=== PATIENT | female | born 1945 | race Two or more races ===

== ENCOUNTER 2024-05-17 03:36 | Emergency (ER) | payer MEDICARE, OTHER ==
[~2024-05-17] VITALS: Ht 167.6 cm; Wt 81.6 kg
[2024-05-17 05:00] VITALS: TEMP 98.1; O2SAT 98
[2024-05-17] MEDS ORDERED: LISINOPRIL (10MG) 10 MG TABLET ONE (05:13)
[2024-05-17 05:18] VITALS: BP 171/74
[2024-05-17] MEDS: LISINOPRIL (10MG) 10 MG TABLET PO SCH (05:18)
== END 2024-05-17 06:23 ==
LOC: ER 03:39
DX: M25.571 Pain in right ankle and joints of right foot (principal); I10 Essential (primary) hypertension; E11.9 Type 2 diabetes mellitus without complications; E78.5 Hyperlipidemia, unspecified

== ENCOUNTER 2024-09-30 18:26 | Emergency (ER) | payer MEDICARE, OTHER ==
[~2024-09-30] VITALS: Ht 152.4 cm; Wt 66.2 kg
[2024-09-30 19:00] LABS: BASOPHILS % (AUTO) 0.3 % (0.0-2.0); EOSINOPHILS % (AUTO) 0.2 % (0.0-6.0); HEMATOCRIT 25 % (33-45); HEMOGLOBIN 8.1 g/dL (11.5-14.8); LYMPHOCYTES # (AUTO) 1.5 K/uL (0.8-4.8); LYMPHOCYTES % (AUTO) 10.2 % (20.0-44.0); MEAN CORPUSCULAR HEMOGLOBIN 29 PG (26.0-33.0); MEAN CORPUSCULAR HGB CONC 33 g/dl (31.0-36.0); MEAN CORPUSCULAR VOLUME 87 fL (82-100); MONOCYTES # (AUTO) 0.9 K/uL (0.1-1.30); NEUTROPHILS % (AUTO) 83.3 % (43.0-81.0); PLATELET COUNT (AUTO) 421 K/uL (150-450); RED BLOOD CELL COUNT(AUTO) 2.84 MIL/uL (4.0-5.2); RED CELL DISTRIBUTION WIDTH 13.3 % (11.5-15.0); WHITE BLOOD COUNT (AUTO) 14.4 K/uL (4.3-11.0)
[2024-09-30 19:11] LABS: CALCIUM, SERUM 8.8 mg/dL (8.5-10.1); CARBON DIOXIDE 27 mmol/L (21-32); CHLORIDE 102 mmol/L (98-107); CREATININE 0.7 mg/dL (0.6-1.3); GLUCOSE 157 mg/dL (74-106); POTASSIUM 4.4 mmol/L (3.5-5.1); SODIUM SERUM 135 mmol/L (136-145); UREA NITROGEN, BLOOD 35 mg/dL (7-18)
[2024-09-30 19:16] LABS: ALANINE AMINOTRANSFERASE < 6 U/L (12-78); ALBUMIN 1.7 g/dL (3.4-5.0); ALKALINE PHOSPHATASE 83 U/L (46-116); ASPARTATE AMINOTRANSFERASE 9 U/L (15-37); BILIRUBIN,DIRECT 0.1 mg/dL (0.0-0.2); BILIRUBIN,TOTAL 0.3 mg/dL (0.2-1.0); TOTAL PROTEIN, SERUM 6.7 g/dL (6.4-8.2)
[2024-09-30 19:19] LABS: LACTIC ACID 1.1 mmol/L (0.4-2.0)
[2024-09-30] MEDS: IV NS 0.9% 1,000 ML BAG IV ONE (19:26)
[2024-09-30 19:40] LABS: INR 1.03 (0.91-1.10); PARTIAL THROMBOPLASTIN TIME 33.9 SEC (24.3-34.3); PROTHROMBIN TIME 10.9 SECS (9.2-11.1)
[2024-09-30] MEDS ORDERED: LORAZEPAM INJ 2 MG/ML VIAL ONE (20:00)
[2024-09-30] MEDS: LORAZEPAM INJ 2 MG/ML VIAL IV ONE (20:06)
[2024-09-30 20:09] LABS: APPEARANCE,URINE CLEAR (CLEAR); BILIRUBIN,URINE NEGATIVE (NEGATIVE); BLOOD, URINE NEGATIVE Ery/uL (NEGATIVE); COLOR,URINE YELLOW (YELLOW); KETONES,URINE TRACE mg/dL (NEGATIVE); LEUKOCYTE ESTERASE ,URINE NEGATIVE (NEGATIVE); NITRITE, URINE NEGATIVE (NEGATIVE); PROTEIN,URINE 3+ mg/dl (NEGATIVE); UGLUCOSE TRACE mg/dL (NEGATIVE)
[2024-09-30] MEDS: CEFEPIME 1 GM in IV D5W 50 ML IV ONE (20:12)
[2024-09-30] MEDS ORDERED: FERR325T24 PO (20:16)
[2024-09-30] MEDS ORDERED: DOCU100C36 PO (20:16)
[2024-09-30] MEDS ORDERED: CYAN100096 PO (20:16)
[2024-09-30] MEDS ORDERED: IPRA3AMP23 IH (20:16)
[2024-09-30] MEDS ORDERED: MELA5TAB PO (20:16)
[2024-09-30] MEDS ORDERED: FOLIC ACID PO (20:16)
[2024-09-30] MEDS ORDERED: ACET-637 PO (20:16)
[2024-09-30] MEDS ORDERED: CHOL100043 PO (20:16)
[2024-09-30] MEDS ORDERED: ACET-73 PO (20:16)
[2024-09-30] MEDS ORDERED: INSU100V7 SQ (20:16)
[2024-09-30] MEDS ORDERED: CRAN300T PO (20:16)
[2024-09-30] MEDS ORDERED: METF-440 PO (20:16)
[2024-09-30] MEDS ORDERED: BISA10SU11 RC (20:16)
[2024-09-30] MEDS ORDERED: DIVA250T4 PO (20:16)
[2024-09-30] MEDS ORDERED: LISI10TA29 PO (20:16)
[2024-09-30] MEDS ORDERED: HYDR-4303 PO (20:16)
[2024-09-30] MEDS ORDERED: AMIN30LI66 PO (20:16)
[2024-09-30] MEDS ORDERED: MAGN400O6 PO ×2 (20:16)
[2024-09-30] MEDS ORDERED: SENN8.6T19 PO (20:16)
[2024-09-30] MEDS ORDERED: MEGE400O6 PO (20:16)
[2024-09-30] MEDS ORDERED: POLY17PO4 PO (20:16)
[2024-09-30] MEDS ORDERED: MULT-213 PO (20:16)
[2024-09-30] MEDS ORDERED: ACET325T53 PO (20:16)
[2024-09-30] MEDS ORDERED: INSU100I47 SQ (20:16)
[2024-09-30] MEDS ORDERED: NA P133E RC (20:16)
[2024-09-30] MEDS ORDERED: SODI100037 PO (20:16)
[2024-09-30] MEDS ORDERED: AMOX-430 PO (20:22)
[2024-09-30] MEDS ORDERED: DOXY100C2 PO (20:23)
[2024-09-30 20:42] LABS: ADD URINE CULTURE NO; BACTERIA,URINE None seen /HPF (None Seen); MUCUS,URINE Few /LPF (None Seen); RBC,URINE 0-2 /HPF (0-2); WBC,URINE 0-2 /HPF (0-3)
[2024-09-30 20:53] LABS: ANISOCYTOSIS 1+; LYMPHOCYTES % (MANUAL) 12 % (16-48); MONOCYTES % (MANUAL) 7 % (0-11.0); NEUTROPHILS % (MANUAL) 81 (42-76); PLATELET ESTIMATE ADEQUATE
[2024-09-30] MEDS: VANCOMYCIN 1 GM in IV D5W 250 ML IV ONE (20:57)
[2024-10-01 00:26] VITALS: BP 158/78; TEMP 98; O2SAT 98
== END 2024-10-01 00:26 ==
LOC: ER 18:33
DX: J18.9 Pneumonia, unspecified organism (principal); R62.7 Adult failure to thrive; E11.9 Type 2 diabetes mellitus without complications; E78.5 Hyperlipidemia, unspecified; I10 Essential (primary) hypertension; F03.90 Unspecified dementia, unspecified severity, without behavioral disturbance, psychotic disturbance, mood disturbance, and anxiety; R07.9 Chest pain, unspecified; F41.9 Anxiety disorder, unspecified; Z85.42 Personal history of malignant neoplasm of other parts of uterus; Z87.09 Personal history of other diseases of the respiratory system; Z87.19 Personal history of other diseases of the digestive system
CPT/HCPCS: 99285; 96365; 71045; 96367; 96361; 96375; 93005; 84145; 85025; 80048; 87040 ×2; 87086; 83605; 80076; 81001; 36415; 85730; 85007; J2060; J3370; J7060; J7030 ×2; J7050; A4223; J0692

== ENCOUNTER 2024-10-08 09:45 | Inpatient (IN) | payer MEDICARE, OTHER ==
[~2024-10-08] VITALS: Ht 167.6 cm; Wt 70.3 kg
[~2024-10-08 09:45] MED LIST: ACET-637 PO; ACET-73 PO; ACET325T53 PO; AMIN30LI66 PO; AMOX-430 PO; BISA10SU11 RC; CHOL100043 PO; CRAN300T PO; CYAN100096 PO; DIVA250T4 PO; DOCU100C36 PO; DOXY100C2 PO; FERR325T24 PO; FOLIC ACID PO; HYDR-4303 PO; INSU100I47 SQ; INSU100V7 SQ; IPRA3AMP23 IH; LISI10TA29 PO; MAGN400O6 PO; MEGE400O6 PO; MELA5TAB PO; METF-440 PO; MULT-213 PO; NA P133E RC; POLY17PO4 PO; SENN8.6T19 PO; SODI100037 PO
[2024-10-08 10:32] LABS: BASOPHILS % (AUTO) 0.3 % (0.0-2.0); EOSINOPHILS # (AUTO) 0.1 K/uL (0.0-0.7); EOSINOPHILS % (AUTO) 0.8 % (0.0-6.0); HEMATOCRIT 23 % (33-45); HEMOGLOBIN 7.5 g/dL (11.5-14.8); LYMPHOCYTES # (AUTO) 1.9 K/uL (0.8-4.8); LYMPHOCYTES % (AUTO) 17.3 % (20.0-44.0); MEAN CORPUSCULAR HEMOGLOBIN 29 PG (26.0-33.0); MEAN CORPUSCULAR HGB CONC 33 g/dl (31.0-36.0); MEAN CORPUSCULAR VOLUME 87 fL (82-100); MONOCYTES % (AUTO) 8.9 % (2.0-12.0); NEUTROPHILS # (AUTO) 7.8 K/uL (1.8-8.9); NEUTROPHILS % (AUTO) 72.7 % (43.0-81.0); PLATELET COUNT (AUTO) 431 K/uL (150-450); RED BLOOD CELL COUNT(AUTO) 2.64 MIL/uL (4.0-5.2); RED CELL DISTRIBUTION WIDTH 13.9 % (11.5-15.0); WHITE BLOOD COUNT (AUTO) 10.8 K/uL (4.3-11.0)
[2024-10-08 10:37] LABS: CALCIUM, SERUM 8.6 mg/dL (8.5-10.1); CREATININE 0.7 mg/dL (0.6-1.3)
[2024-10-08 10:41] LABS: INR 1.1 (0.91-1.10); PROTHROMBIN TIME 11.6 SECS (9.2-11.1)
[2024-10-08 10:54] LABS: APPEARANCE,URINE CLOUDY (CLEAR); BILIRUBIN,URINE 1+ (NEGATIVE); BLOOD, URINE 2+ Ery/uL (NEGATIVE); COLOR,URINE DARK YELLOW (YELLOW); KETONES,URINE TRACE mg/dL (NEGATIVE); LEUKOCYTE ESTERASE ,URINE 1+ (NEGATIVE); NITRITE, URINE NEGATIVE (NEGATIVE); PROTEIN,URINE 3+ mg/dl (NEGATIVE); UGLUCOSE NEGATIVE (NEGATIVE)
[2024-10-08 11:09] LABS: BACTERIA,URINE Many /HPF (None Seen)
[2024-10-08 11:10] LABS: ADD URINE CULTURE YES; SQUAMOUS EPITHELIAL CELL,UR Few /HPF (None Seen)
[2024-10-08] MEDS ORDERED: LORA-258 PO (11:24)
[2024-10-08] MEDS: CEFTRIAXONE 1GM BAG (ER ONLY) 50 ML IV ONE (11:30)
[2024-10-08] MEDS: IV NS 0.9% 500 ML BAG IV ONE (11:45)
[2024-10-08] MEDS: OLANZAPINE 5 MG TABLET PO ONE (12:10)
[2024-10-08] MEDS ORDERED: MAGNESIUM HYDROXIDE 30 ML UDC PO PRN (15:30)
[2024-10-08] MEDS ORDERED: ACETAMINOPHEN 325 MG TABLET PO PRN (15:30)
[2024-10-08] MEDS ORDERED: ONDANSETRON HCL/PF 4 MG/2 ML VIAL IVP PRN (15:30)
[2024-10-08] MEDS ORDERED: MAG HYDROX/AL HYDROX/SIMETH 30 ML UDC PO PRN (15:30)
[2024-10-08] MEDS ORDERED: CEFTRIAXONE 1 G in IV D5W 50 ML IV SCH (15:30)
[2024-10-08] MEDS ORDERED: DEXTROSE 50%-WATER 50 ML DISP.SYRIN IV PRN (15:30)
[2024-10-08] MEDS: IV NS 0.9% 1,000 ML IV PRN (17:33)
[2024-10-08] MEDS: FERROUS SULFATE (325 MG) 325 MG/TAB TABLET PO SCH (17:34)
[2024-10-08] MEDS: LISINOPRIL (10MG) 10 MG TABLET PO SCH (17:34)
[2024-10-08] MEDS: SODIUM CHLORIDE 1000 MG TABLET PO SCH (17:35)
[2024-10-08] MEDS: DIVALPROEX SODIUM 250 MG TABLET.DR PO SCH (17:35)
[2024-10-08] MEDS: BLOOD SUGAR DIAGNOSTIC 1 EACH STRIP IN SCH (17:37)
[2024-10-08 18:34] VITALS: BP 147/77; TEMP 98.4; O2SAT 98
[2024-10-08 20:00] VITALS: BP 152/88; TEMP 97.7; O2SAT 97
[2024-10-08] MEDS: SENNOSIDES 8.6 MG TABLET PO SCH (21:36)
[2024-10-08] MEDS: INSULIN REGULAR, HUMAN 100 UNIT/ML 3 ML VIAL SQ PRN (21:52)
[2024-10-09 07:30] VITALS: BP 150/82; TEMP 98.2; O2SAT 99
[2024-10-09 07:48] VITALS: BP 150/82; TEMP 98.2; O2SAT 99
[2024-10-09 07:50] LABS: CALCIUM, SERUM 8.1 mg/dL (8.5-10.1); CREATININE 0.5 mg/dL (0.6-1.3); MAGNESIUM 2.1 mg/dL (1.8-2.4); POTASSIUM 3.7 mmol/L (3.5-5.1)
[2024-10-09] MEDS: MULTIVIT W/MINERALS 1 TAB TABLET PO SCH (08:51)
[2024-10-09] MEDS: POLYETHYLENE GLYCOL 3350 17 GM POWD.PACK PO SCH (08:51)
[2024-10-09] MEDS: CHOLECALCIFEROL 1,000 UNIT TABLET (VIT D3) PO SCH (08:51)
[2024-10-09] MEDS: DOCUSATE SODIUM 100 MG CAPSULE PO SCH (08:52)
[2024-10-09] MEDS: MEGESTROL ACETATE SUSP 400 MG/10 ML UDC PO SCH (08:52)
[2024-10-09] MEDS: FOLIC ACID 1 MG TABLET PO SCH (08:52)
[2024-10-09] MEDS: CYANOCOBALAMIN 500 MCG TABLET PO SCH (08:52)
[2024-10-09 09:20] LABS: BASOPHILS % (AUTO) 0.3 % (0.0-2.0); EOSINOPHILS # (AUTO) 0.1 K/uL (0.0-0.7); HEMATOCRIT 23 % (33-45); HEMOGLOBIN 7.6 g/dL (11.5-14.8); LYMPHOCYTES # (AUTO) 2.1 K/uL (0.8-4.8); MEAN CORPUSCULAR HEMOGLOBIN 29 PG (26.0-33.0); MEAN CORPUSCULAR HGB CONC 33 g/dl (31.0-36.0); MEAN CORPUSCULAR VOLUME 89 fL (82-100); MONOCYTES # (AUTO) 0.9 K/uL (0.1-1.30); MONOCYTES % (AUTO) 8.6 % (2.0-12.0); NEUTROPHILS # (AUTO) 7.8 K/uL (1.8-8.9); NEUTROPHILS % (AUTO) 71.1 % (43.0-81.0); PLATELET COUNT (AUTO) 424 K/uL (150-450); RED BLOOD CELL COUNT(AUTO) 2.63 MIL/uL (4.0-5.2)
[2024-10-09] MEDS: CEFTRIAXONE 1 G in IV D5W 50 ML IV SCH (13:16)
[2024-10-09 15:42] VITALS: BP 152/79; TEMP 98.1; O2SAT 98
[2024-10-09 16:12] VITALS: BP 152/79; TEMP 98.1; O2SAT 98
[2024-10-09 20:00] VITALS: BP 153/71; TEMP 98.1; O2SAT 99
[2024-10-09] MEDS: LORAZEPAM 0.5 MG TABLET PO PRN (20:53)
[2024-10-10 07:58] LABS: BASOPHILS % (AUTO) 0.5 % (0.0-2.0); EOSINOPHILS # (AUTO) 0.1 K/uL (0.0-0.7); EOSINOPHILS % (AUTO) 0.7 % (0.0-6.0); HEMATOCRIT 25 % (33-45); HEMOGLOBIN 7.8 g/dL (11.5-14.8); LYMPHOCYTES # (AUTO) 2.1 K/uL (0.8-4.8); LYMPHOCYTES % (AUTO) 21.4 % (20.0-44.0); MEAN CORPUSCULAR HEMOGLOBIN 29 PG (26.0-33.0); MEAN CORPUSCULAR HGB CONC 32 g/dl (31.0-36.0); MEAN CORPUSCULAR VOLUME 91 fL (82-100); MONOCYTES # (AUTO) 0.8 K/uL (0.1-1.30); MONOCYTES % (AUTO) 7.9 % (2.0-12.0); NEUTROPHILS % (AUTO) 69.5 % (43.0-81.0); PLATELET COUNT (AUTO) 424 K/uL (150-450); RED BLOOD CELL COUNT(AUTO) 2.71 MIL/uL (4.0-5.2); RED CELL DISTRIBUTION WIDTH 14.6 % (11.5-15.0)
[2024-10-10 08:00] VITALS: BP 164/77; TEMP 98.8; O2SAT 98
[2024-10-10 08:05] LABS: CALCIUM, SERUM 8.3 mg/dL (8.5-10.1); CREATININE 0.4 mg/dL (0.6-1.3); MAGNESIUM 2.1 mg/dL (1.8-2.4); PHOSPHORUS 2.6 mg/dL (2.5-4.9); POTASSIUM 3.7 mmol/L (3.5-5.1)
[2024-10-10 09:30] VITALS: BP 155/70
[2024-10-10 16:00] VITALS: BP 153/93; TEMP 97.3; O2SAT 99
[2024-10-10 20:00] VITALS: BP 152/72; TEMP 97.5; O2SAT 97
[2024-10-10] MEDS: OLANZAPINE ZYDIS 5 MG TAB.RAPDIS PO PRN (23:05)
[2024-10-11 07:00] VITALS: BP 153/71; TEMP 98.2; O2SAT 99
[2024-10-11 07:09] LABS: BASOPHILS % (AUTO) 0.4 % (0.0-2.0); EOSINOPHILS # (AUTO) 0.1 K/uL (0.0-0.7); EOSINOPHILS % (AUTO) 1.2 % (0.0-6.0); HEMATOCRIT 23 % (33-45); HEMOGLOBIN 7.2 g/dL (11.5-14.8); LYMPHOCYTES # (AUTO) 2.1 K/uL (0.8-4.8); LYMPHOCYTES % (AUTO) 21.2 % (20.0-44.0); MEAN CORPUSCULAR HEMOGLOBIN 28 PG (26.0-33.0); MEAN CORPUSCULAR HGB CONC 32 g/dl (31.0-36.0); MEAN CORPUSCULAR VOLUME 89 fL (82-100); MONOCYTES # (AUTO) 0.7 K/uL (0.1-1.30); MONOCYTES % (AUTO) 7.4 % (2.0-12.0); NEUTROPHILS # (AUTO) 6.8 K/uL (1.8-8.9); NEUTROPHILS % (AUTO) 69.8 % (43.0-81.0); PLATELET COUNT (AUTO) 431 K/uL (150-450); RED BLOOD CELL COUNT(AUTO) 2.57 MIL/uL (4.0-5.2); WHITE BLOOD COUNT (AUTO) 9.7 K/uL (4.3-11.0)
[2024-10-11 08:09] LABS: CALCIUM, SERUM 8.6 mg/dL (8.5-10.1); CREATININE 0.5 mg/dL (0.6-1.3); MAGNESIUM 2.1 mg/dL (1.8-2.4); PHOSPHORUS 2.9 mg/dL (2.5-4.9); POTASSIUM 3.7 mmol/L (3.5-5.1)
[2024-10-11 08:23] VITALS: BP 162/61
[2024-10-11] MEDS ORDERED: CIPR-262 PO (13:19)
[2024-10-11] MEDS ORDERED: OLAN5TAB6 PO (13:19)
== END 2024-10-11 16:04 | DRG 689 ==
LOC: ER 09:47 → MED 15:33
PROVIDERS: ADMIT Nurse Practitioner Acute Care; ATTEND Nurse Practitioner Acute Care
DX: N39.0 Urinary tract infection, site not specified (principal); G93.41 Metabolic encephalopathy; F03.93 Unspecified dementia, unspecified severity, with mood disturbance; F31.64 Bipolar disorder, current episode mixed, severe, with psychotic features; F03.911 Unspecified dementia, unspecified severity, with agitation; F03.94 Unspecified dementia, unspecified severity, with anxiety; B96.89 Other specified bacterial agents as the cause of diseases classified elsewhere; Z79.84 Long term (current) use of oral hypoglycemic drugs; Z79.4 Long term (current) use of insulin; Z79.899 Other long term (current) drug therapy; E78.5 Hyperlipidemia, unspecified; C54.1 Malignant neoplasm of endometrium; D50.9 Iron deficiency anemia, unspecified; E11.9 Type 2 diabetes mellitus without complications; E86.0 Dehydration; I10 Essential (primary) hypertension; R13.10 Dysphagia, unspecified; Z66 Do not resuscitate
CPT/HCPCS: 36415; 71045-TC; 80048-TC; 80164-TC; 81001; 82962-TC; 83735-TC; 84100-TC; 85025-TC; 85730-TC; 86850-TC; 87040-TC; 87081-TC; 87086-TC; 97110-TC; 97112-TC; 97530-TC; A4223; A6213; G0378; J0696; J1815; J7030; J7040; J7060

== ENCOUNTER 2024-10-19 11:52 | Inpatient (IN) | payer MEDICARE, OTHER ==
[~2024-10-19] VITALS: Ht 165.1 cm; Wt 82.6 kg
[~2024-10-19 11:52] MED LIST changes: -AMOX-430 PO; +CIPR-262 PO; -DOXY100C2 PO; +LORA-258 PO; +OLAN5TAB6 PO
[2024-10-19] MEDS: IV NS 0.9% 1,000 ML BAG IV ONE (12:58)
[2024-10-19 13:05] LABS: PLATELET COUNT (AUTO) 478 K/uL (150-450); RED BLOOD CELL COUNT(AUTO) 2.85 MIL/uL (4.0-5.2); RED CELL DISTRIBUTION WIDTH 15.6 % (11.5-15.0); WHITE BLOOD COUNT (AUTO) 12.6 K/uL (4.3-11.0)
[2024-10-19 13:13] LABS: CALCIUM, SERUM 8.8 mg/dL (8.5-10.1); CREATININE 0.9 mg/dL (0.6-1.3); SODIUM SERUM 141 mmol/L (136-145); UREA NITROGEN, BLOOD 38 mg/dL (7-18)
[2024-10-19 13:17] LABS: INR 1.01 (0.91-1.10)
[2024-10-19 13:19] LABS: ASPARTATE AMINOTRANSFERASE 11 U/L (15-37); TOTAL PROTEIN, SERUM 6.4 g/dL (6.4-8.2)
[2024-10-19] MEDS ORDERED: OLAN5TAB3 PO (14:51)
[2024-10-19] MEDS ORDERED: L. A1TAB10 PO (14:51)
[2024-10-19] MEDS ORDERED: ASCO100T12 PO (14:51)
[2024-10-19 16:07] VITALS: BP 147/83; TEMP 98.4; O2SAT 96
[2024-10-19] MEDS ORDERED: LORAZEPAM 0.5 MG TABLET PO PRN (17:00)
[2024-10-19] MEDS ORDERED: ACETAMINOPHEN 325 MG TABLET PO PRN (17:00)
[2024-10-19] MEDS: FERROUS SULFATE (325 MG) 325 MG/TAB TABLET PO SCH (17:00)
[2024-10-19] MEDS ORDERED: DEXTROSE 50%-WATER 50 ML DISP.SYRIN IV PRN (17:00)
[2024-10-19] MEDS: LISINOPRIL (10MG) 10 MG TABLET PO SCH (17:00)
[2024-10-19] MEDS ORDERED: ONDANSETRON HCL/PF 4 MG/2 ML VIAL IVP PRN (17:00)
[2024-10-19] MEDS: DIVALPROEX SODIUM 250 MG TABLET.DR PO SCH (17:00)
[2024-10-19] MEDS: ACIDOPHILUS/BULGARICUS 1 EACH TAB.CHEW PO SCH (17:00)
[2024-10-19] MEDS ORDERED: OLANZAPINE 5 MG TABLET PO PRN (17:00)
[2024-10-19] MEDS: IV D5/0.45 NACL 1,000 ML IV PRN (17:22)
[2024-10-19] MEDS: BLOOD SUGAR DIAGNOSTIC 1 EACH STRIP IN SCH (17:43)
[2024-10-19 18:12] LABS: APPEARANCE,URINE CLEAR (CLEAR); BLOOD, URINE NEGATIVE Ery/uL (NEGATIVE); LEUKOCYTE ESTERASE ,URINE NEGATIVE (NEGATIVE); NITRITE, URINE NEGATIVE (NEGATIVE); UGLUCOSE TRACE mg/dL (NEGATIVE)
[2024-10-19 18:19] LABS: ADD URINE CULTURE YES; SQUAMOUS EPITHELIAL CELL,UR Few /HPF (None Seen)
[2024-10-19 18:20] LABS: URINE AMORPHOUS URATE Few /HPF (None Seen)
[2024-10-19] MEDS: SENNOSIDES 8.6 MG TABLET PO SCH (21:00)
[2024-10-19] MEDS: DOCUSATE SODIUM 100 MG CAPSULE PO SCH (21:33)
[2024-10-19] MEDS: INSULIN REGULAR, HUMAN 100 UNIT/ML 3 ML VIAL SQ PRN (22:34)
[2024-10-20] MEDS: hydrALAZINE HCL IV 20 MG VIAL IV PRN (00:52)
[2024-10-20 07:19] LABS: PLATELET COUNT (AUTO) 502 K/uL (150-450); RED BLOOD CELL COUNT(AUTO) 3.14 MIL/uL (4.0-5.2); RED CELL DISTRIBUTION WIDTH 16.6 % (11.5-15.0); WHITE BLOOD COUNT (AUTO) 14.2 K/uL (4.3-11.0)
[2024-10-20] MEDS: PANTOPRAZOLE 40 MG TABLET.DR PO SCH (07:30)
[2024-10-20] MEDS: MULTIVIT W/MINERALS 1 TAB TABLET PO SCH (08:00)
[2024-10-20] MEDS: MEGESTROL ACETATE SUSP 400 MG/10 ML UDC PO SCH (08:00)
[2024-10-20 08:55] LABS: CALCIUM, SERUM 8.6 mg/dL (8.5-10.1); CREATININE 0.7 mg/dL (0.6-1.3); PHOSPHORUS 3.4 mg/dL (2.5-4.9); SODIUM SERUM 141.0 mmol/L (136-145); UREA NITROGEN, BLOOD 40.0 mg/dL (7-18)
[2024-10-20] MEDS: CEFTRIAXONE 1 G in IV D5W 50 ML IV SCH (12:56)
[2024-10-20 20:00] VITALS: BP 159/86; TEMP 98.1; O2SAT 99
[2024-10-20] MEDS: MUPIROCIN OINT 2% 22 GM TUBE NS SCH (20:59)
[2024-10-21] VITALS (8 sets, daily range): BP systolic 102–168; BP diastolic 71–94; TEMP 97.7–100.8; O2SAT 97–100
[2024-10-21 07:36] LABS: CALCIUM, SERUM 8.6 mg/dL (8.5-10.1); CREATININE 0.7 mg/dL (0.6-1.3); PHOSPHORUS 3.1 mg/dL (2.5-4.9); SODIUM SERUM 139.0 mmol/L (136-145); UREA NITROGEN, BLOOD 37.0 mg/dL (7-18)
[2024-10-21 07:40] LABS: PLATELET COUNT (AUTO) 512 K/uL (150-450); RED BLOOD CELL COUNT(AUTO) 2.99 MIL/uL (4.0-5.2); RED CELL DISTRIBUTION WIDTH 16.3 % (11.5-15.0); WHITE BLOOD COUNT (AUTO) 14.3 K/uL (4.3-11.0)
[2024-10-21] MEDS ORDERED: DOSING PER PHARMACY-CEFEPIME IVPB XX PRN (17:00)
[2024-10-21] MEDS ORDERED: DOSING PER PHARMACY-VANCOMYCIN IV XX PRN (17:00)
[2024-10-21 17:50] LABS: CALCIUM, SERUM 8.4 mg/dL (8.5-10.1); CREATININE 0.8 mg/dL (0.6-1.3); PLATELET COUNT (AUTO) 519 K/uL (150-450); RED BLOOD CELL COUNT(AUTO) 2.80 MIL/uL (4.0-5.2); RED CELL DISTRIBUTION WIDTH 17.1 % (11.5-15.0); SODIUM SERUM 140.0 mmol/L (136-145); UREA NITROGEN, BLOOD 37.0 mg/dL (7-18); WHITE BLOOD COUNT (AUTO) 15.2 K/uL (4.3-11.0)
[2024-10-21] MEDS: CEFEPIME 2 GM in IV D5W 100 ML IV SCH (17:54)
[2024-10-21 17:59] LABS: LACTIC ACID 1.3 mmol/L (0.4-2.0)
[2024-10-21] MEDS: VANCOMYCIN 1 GM in IV D5W 250ml IV ONE (18:25)
[2024-10-21] MEDS: VANCOMYCIN 750 MG in IV D5W 250 ML IV ONE (22:03)
[2024-10-22 04:00] VITALS: BP 127/63; TEMP 99; O2SAT 99
[2024-10-22 07:32] LABS: PLATELET COUNT (AUTO) 424 K/uL (150-450); RED BLOOD CELL COUNT(AUTO) 2.95 MIL/uL (4.0-5.2); RED CELL DISTRIBUTION WIDTH 17.0 % (11.5-15.0); WHITE BLOOD COUNT (AUTO) 12.7 K/uL (4.3-11.0)
[2024-10-22 08:00] VITALS: BP 123/78; TEMP 97.3; O2SAT 99
[2024-10-22 08:19] LABS: CALCIUM, SERUM 8.2 mg/dL (8.5-10.1); CREATININE 0.6 mg/dL (0.6-1.3); PHOSPHORUS 2.7 mg/dL (2.5-4.9); SODIUM SERUM 134.0 mmol/L (136-145); UREA NITROGEN, BLOOD 30.0 mg/dL (7-18)
[2024-10-22 08:57] LABS: APPEARANCE,URINE CLEAR (CLEAR); BLOOD, URINE NEGATIVE Ery/uL (NEGATIVE); LEUKOCYTE ESTERASE ,URINE NEGATIVE (NEGATIVE); NITRITE, URINE NEGATIVE (NEGATIVE); UGLUCOSE NEGATIVE (NEGATIVE)
[2024-10-22] MEDS: VANCOMYCIN 750 MG in IV D5W 250 ML IV SCH ×2 (11:50→23:51)
[2024-10-22] MEDS: HYDROCODONE/APAP 5/325MG TABLET PO PRN (11:51)
[2024-10-22 16:00] VITALS: BP 120/64; TEMP 96.9; O2SAT 100
[2024-10-22 16:01] LABS: ADD URINE CULTURE YES; SQUAMOUS EPITHELIAL CELL,UR Few /HPF (None Seen); YEAST,URINE Moderate /HPF (None Seen)
[2024-10-22 20:00] VITALS: BP 125/65; TEMP 97.7; O2SAT 99
[2024-10-22] MEDS: PANTOPRAZOLE 40 MG/PACK PACK GT SCH (20:57)
[2024-10-23 04:00] VITALS: BP 137/78; TEMP 98.1; O2SAT 99
[2024-10-23 07:55] LABS: PLATELET COUNT (AUTO) 454 K/uL (150-450); RED BLOOD CELL COUNT(AUTO) 2.82 MIL/uL (4.0-5.2); RED CELL DISTRIBUTION WIDTH 15.6 % (11.5-15.0); WHITE BLOOD COUNT (AUTO) 14.7 K/uL (4.3-11.0)
[2024-10-23 08:00] VITALS: BP 135/78; TEMP 97.5; O2SAT 100
[2024-10-23 08:52] LABS: CALCIUM, SERUM 8.8 mg/dL (8.5-10.1); CREATININE 0.8 mg/dL (0.6-1.3); PHOSPHORUS 2.7 mg/dL (2.5-4.9); SODIUM SERUM 133.0 mmol/L (136-145); UREA NITROGEN, BLOOD 35.0 mg/dL (7-18)
[2024-10-23] MEDS: GLUCERNA 1.2 1,000 ML BOTTLE NG SCH (11:26)
[2024-10-23 14:49] LABS: HIV-1/2 ANTIBODY NON REACTIVE (NONREACTIVE)
[2024-10-23 16:00] VITALS: BP 122/67; TEMP 97.5; O2SAT 100
[2024-10-23] MEDS ORDERED: DIVALPROEX SODIUM 125 MG CAP.SPRINK NG SCH (18:00)
[2024-10-23] MEDS: FERROUS SULFATE UDC 300 MG/5 ML UDC NG SCH (18:24)
[2024-10-23] MEDS: VALPROIC ACID 250 MG/5 ML UDC GT SCH (18:24)
[2024-10-23 20:00] VITALS: BP 91/32; TEMP 97.5; O2SAT 97
[2024-10-23 20:43] VITALS: BP 134/69
[2024-10-23] MEDS: VANCOMYCIN HCL 1.25 GM in IV D5W 250 ML IV SCH (23:37)
[2024-10-24 05:00] VITALS: BP 110/70; TEMP 97.6; O2SAT 98
[2024-10-24 06:43] LABS: PLATELET COUNT (AUTO) 395 K/uL (150-450); RED BLOOD CELL COUNT(AUTO) 2.56 MIL/uL (4.0-5.2); RED CELL DISTRIBUTION WIDTH 16.4 % (11.5-15.0); WHITE BLOOD COUNT (AUTO) 17.8 K/uL (4.3-11.0)
[2024-10-24 08:00] VITALS: BP 122/76; TEMP 98.2; O2SAT 94
[2024-10-24 08:09] LABS: ABG BASE EXCESS -4.8 mmol/L (-2.0-3.0); ABG OXYGEN SATURATION 98.6 % (94.0-98.0); ABG PCO2 28.9 mmHg (32.0-45.0); ABG PH 7.430 (7.350-7.450); ABG PO2 133.8 mmHg (83.0-108.0); ABG TOTAL HEMOGLOBIN 8.2 G/dL (12.0-16.0); FLOW, BLOOD GAS 5.00 L/min (0.00-30.00); SITE, ABG RIGHT RADIAL
[2024-10-24 10:46] LABS: CALCIUM, SERUM 8.7 mg/dL (8.5-10.1); CREATININE 0.8 mg/dL (0.6-1.3); PHOSPHORUS 2.8 mg/dL (2.5-4.9); SODIUM SERUM 133.0 mmol/L (136-145); UREA NITROGEN, BLOOD 39.0 mg/dL (7-18)
[2024-10-24 13:22] LABS: ASPARTATE AMINOTRANSFERASE 13 U/L (15-37); TOTAL PROTEIN, SERUM 5.5 g/dL (6.4-8.2)
[2024-10-24] MEDS ORDERED: IV NS 0.9% 250 ML IV ONE (13:41)
[2024-10-24] MEDS ORDERED: IOHEXOL-300 100 ML VIAL IV ONE (13:41)
[2024-10-24] MEDS ORDERED: LACTULOSE 10 G/15 ML UDC (PYXIS) PO PRN (15:30)
[2024-10-24] MEDS ORDERED: POLYETHYLENE GLYCOL 3350 17 GM POWD.PACK GT PRN (15:30)
[2024-10-24 16:00] VITALS: BP 145/71; TEMP 98.4; O2SAT 98
[2024-10-24] MEDS: MINERAL OIL 133 ML (PYXIS) 1 EA ENEMA RC ONE (16:26)
[2024-10-24 20:00] VITALS: BP 145/71; TEMP 98.4; O2SAT 98
[2024-10-24 20:10] LABS: SERUM AMMONIA 24 umol/L (11-32)
[2024-10-24] MEDS: IV LR 1000 ML 1,000 ML IV PRN (23:01)
[2024-10-25] VITALS (8 sets, daily range): BP systolic 107–128; BP diastolic 57–81; TEMP 97.6–99.5; O2SAT 94–98
[2024-10-25 18:12] LABS: PLATELET COUNT (AUTO) 338 K/uL (150-450); RED BLOOD CELL COUNT(AUTO) 2.34 MIL/uL (4.0-5.2); RED CELL DISTRIBUTION WIDTH 16.8 % (11.5-15.0); WHITE BLOOD COUNT (AUTO) 16.5 K/uL (4.3-11.0)
[2024-10-25 18:31] LABS: CALCIUM, SERUM 8.3 mg/dL (8.5-10.1); CREATININE 0.9 mg/dL (0.6-1.3); PHOSPHORUS 2.4 mg/dL (2.5-4.9); SODIUM SERUM 127.0 mmol/L (136-145); UREA NITROGEN, BLOOD 48.0 mg/dL (7-18)
[2024-10-25 19:22] LABS: LYMPHOCYTES % (MANUAL) 8 % (16-48); MONOCYTES % (MANUAL) 7 % (0-11.0); NEUTROPHILS % (MANUAL) 85 (42-76); PLATELET ESTIMATE ADEQUATE
[2024-10-26 01:30] VITALS: BP 120/68; TEMP 98.2
[2024-10-26 04:00] VITALS: BP 113/62; TEMP 97.3; O2SAT 90
[2024-10-26 08:00] VITALS: BP 92/32; TEMP 99.1; O2SAT 90
[2024-10-26 08:47] LABS: PLATELET COUNT (AUTO) 374 K/uL (150-450); RED BLOOD CELL COUNT(AUTO) 2.83 MIL/uL (4.0-5.2); RED CELL DISTRIBUTION WIDTH 15.7 % (11.5-15.0); WHITE BLOOD COUNT (AUTO) 15.4 K/uL (4.3-11.0)
[2024-10-26 09:02] LABS: CALCIUM, SERUM 8.5 mg/dL (8.5-10.1); CREATININE 0.8 mg/dL (0.6-1.3); SODIUM SERUM 131 mmol/L (136-145); UREA NITROGEN, BLOOD 48 mg/dL (7-18)
[2024-10-26] MEDS ORDERED: ALBUTEROL FS 2.5 MG/0.5 ML VIAL.NEB NEB PRN (09:30)
[2024-10-26 10:09] LABS: ASPARTATE AMINOTRANSFERASE 22 U/L (15-37); TOTAL PROTEIN, SERUM 5.7 g/dL (6.4-8.2)
[2024-10-26 11:34] LABS: ABG BASE EXCESS -2.6 mmol/L (-2.0-3.0); ABG OXYGEN SATURATION 93.8 % (94.0-98.0); ABG PCO2 28.4 mmHg (32.0-45.0); ABG PH 7.473 (7.350-7.450); ABG PO2 66.4 mmHg (83.0-108.0); ABG TOTAL HEMOGLOBIN 8.5 G/dL (12.0-16.0); FLOW, BLOOD GAS 9.00 L/min (0.00-30.00); FRACTIONATED INSPIRED OXYGEN 35.0 %; SITE, ABG RIGHT RADIAL
[2024-10-26] MEDS: PANTOPRAZOLE 40 MG VIAL IV SCH (12:35)
[2024-10-26] MEDS: ENOXAPARIN SODIUM 80 MG/0.8 ML DISP.SYRIN SQ SCH ×2 (12:36→21:42)
[2024-10-26 16:00] VITALS: BP 92/32; TEMP 98.4; O2SAT 92
[2024-10-26 18:07] VITALS: BP 120/59; TEMP 98.1; O2SAT 100
[2024-10-26 20:00] VITALS: BP 110/83; TEMP 98.2; O2SAT 100
[2024-10-26 20:06] LABS: ABG BASE EXCESS -1.7 mmol/L (-2.0-3.0); ABG OXYGEN SATURATION 99.4 % (94.0-98.0); ABG PCO2 26.2 mmHg (32.0-45.0); ABG PH 7.508 (7.350-7.450); ABG PO2 236.7 mmHg (83.0-108.0); ABG TOTAL HEMOGLOBIN 10.5 G/dL (12.0-16.0); FRACTIONATED INSPIRED OXYGEN 100.0 %; SET RATE, BG 20.0; SITE, ABG LEFT RADIAL
[2024-10-26] MEDS: IPRATROPIUM NEB FS 0.5 MG/2.5 ML AMPUL.NEB NEB SCH (20:12)
[2024-10-26] MEDS: ALBUTEROL FS 2.5 MG/3 ML VIAL.NEB NEB SCH (20:12)
[2024-10-27] VITALS (8 sets, daily range): BP systolic 107–147; BP diastolic 49–73; TEMP 97.5–98.8; O2SAT 93–100
[2024-10-27] MEDS: PANTOPRAZOLE 40 MG/PACK PACK NG SCH (09:06)
[2024-10-27 09:39] LABS: PLATELET COUNT (AUTO) 391 K/uL (150-450); RED BLOOD CELL COUNT(AUTO) 2.71 MIL/uL (4.0-5.2); RED CELL DISTRIBUTION WIDTH 15.9 % (11.5-15.0); WHITE BLOOD COUNT (AUTO) 15.9 K/uL (4.3-11.0)
[2024-10-27 09:54] LABS: CALCIUM, SERUM 8.9 mg/dL (8.5-10.1); CREATININE 0.9 mg/dL (0.6-1.3); SODIUM SERUM 132 mmol/L (136-145); UREA NITROGEN, BLOOD 54 mg/dL (7-18)
[2024-10-27 09:59] LABS: ASPARTATE AMINOTRANSFERASE 14 U/L (15-37); TOTAL PROTEIN, SERUM 6.1 g/dL (6.4-8.2)
[2024-10-27 10:29] LABS: ABG BASE EXCESS -0.1 mmol/L (-2.0-3.0); ABG OXYGEN SATURATION 99.5 % (94.0-98.0); ABG PCO2 26.1 mmHg (32.0-45.0); ABG PH 7.532 (7.350-7.450); ABG PO2 406.4 mmHg (83.0-108.0); ABG TOTAL HEMOGLOBIN 11.8 G/dL (12.0-16.0); FRACTIONATED INSPIRED OXYGEN 100.0 %; SET RATE, BG 20.0; SITE, ABG RIGHT RADIAL
[2024-10-27] MEDS: ALBUMIN 25% 25 GM in PREMIX 1 EA IV SCH (10:50)
[2024-10-27] MEDS ORDERED: DOSING PER PHARMACY-ZOSYN IV 1 EA EA XX PRN (13:00)
[2024-10-27] MEDS: PIPERACILLIN /TAZOBACTAM 3.375 G in IV D5W 100 ML IV SCH (14:04)
[2024-10-27] MEDS: ZOSYN IVPB 3.375 G in IV D5W 50ml IV ONE (14:11)
[2024-10-28] VITALS (20 sets, daily range): BP systolic 111–134; BP diastolic 52–80; TEMP 97.9–99.1; O2SAT 91–99
[2024-10-28 00:40] LABS: PLATELET COUNT (AUTO) 374 K/uL (150-450); RED BLOOD CELL COUNT(AUTO) 2.33 MIL/uL (4.0-5.2); RED CELL DISTRIBUTION WIDTH 16.3 % (11.5-15.0); WHITE BLOOD COUNT (AUTO) 13.2 K/uL (4.3-11.0)
[2024-10-28 00:49] LABS: CALCIUM, SERUM 8.8 mg/dL (8.5-10.1); CREATININE 0.8 mg/dL (0.6-1.3); SODIUM SERUM 132 mmol/L (136-145); UREA NITROGEN, BLOOD 54 mg/dL (7-18)
[2024-10-28 00:55] LABS: ASPARTATE AMINOTRANSFERASE 13 U/L (15-37); TOTAL PROTEIN, SERUM 5.6 g/dL (6.4-8.2)
[2024-10-28 01:12] LABS: BASOPHILS % (MANUAL) 0 % (0.0-2.0); EOSINOPHILS % (MANUAL) 0 % (0-4); LYMPHOCYTES % (MANUAL) 9 % (16-48); MONOCYTES % (MANUAL) 6 % (0-11.0); NEUTROPHILS % (MANUAL) 85 (42-76); PLATELET ESTIMATE ADEQUATE
[2024-10-28] MEDS: FUROSEMIDE 20 MG/2 ML VIAL IV SCH (09:08)
[2024-10-28] MEDS: GLUCERNA 1.2 1,000 ML BOTTLE NG PRN (19:25)
[2024-10-28] MEDS: Z GUARD REMEDY 4 OZ OINT TP SCH (21:04)
[2024-10-29] VITALS (16 sets, daily range): BP systolic 101–134; BP diastolic 55–86; TEMP 97.7–99.5; O2SAT 85–99
[2024-10-29 01:12] LABS: CALCIUM, SERUM 9.1 mg/dL (8.5-10.1); CREATININE 0.7 mg/dL (0.6-1.3); SODIUM SERUM 134 mmol/L (136-145); UREA NITROGEN, BLOOD 46 mg/dL (7-18)
[2024-10-29 01:18] LABS: ASPARTATE AMINOTRANSFERASE 12 U/L (15-37); TOTAL PROTEIN, SERUM 6.0 g/dL (6.4-8.2)
[2024-10-29 02:00] LABS: PLATELET COUNT (AUTO) 378 K/uL (150-450); RED BLOOD CELL COUNT(AUTO) 3.64 MIL/uL (4.0-5.2); RED CELL DISTRIBUTION WIDTH 16.1 % (11.5-15.0); WHITE BLOOD COUNT (AUTO) 21.0 K/uL (4.3-11.0)
[2024-10-29] MEDS: ALBUMIN 25% 25 GM in PREMIX 1 EA IV SCH (09:53)
[2024-10-30] VITALS (10 sets, daily range): BP systolic 92–140; BP diastolic 64–83; TEMP 97.9–99.3; O2SAT 96–99
[2024-10-30 00:27] LABS: PLATELET COUNT (AUTO) 383 K/uL (150-450); RED BLOOD CELL COUNT(AUTO) 3.21 MIL/uL (4.0-5.2); RED CELL DISTRIBUTION WIDTH 16.2 % (11.5-15.0); WHITE BLOOD COUNT (AUTO) 17.0 K/uL (4.3-11.0)
[2024-10-30 00:35] LABS: CALCIUM, SERUM 8.9 mg/dL (8.5-10.1); CREATININE 0.9 mg/dL (0.6-1.3); SODIUM SERUM 135 mmol/L (136-145); UREA NITROGEN, BLOOD 47 mg/dL (7-18)
[2024-10-30 00:40] LABS: ASPARTATE AMINOTRANSFERASE 6 U/L (15-37); TOTAL PROTEIN, SERUM 5.7 g/dL (6.4-8.2)
[2024-10-30 01:35] LABS: LYMPHOCYTES % (MANUAL) 9 % (16-48); MONOCYTES % (MANUAL) 2 % (0-11.0); NEUTROPHILS % (MANUAL) 89 (42-76); PLATELET ESTIMATE ADEQUATE
[2024-10-30] MEDS: ALBUMIN 25% 25 GM in PREMIX 1 EA IV SCH (09:14)
[2024-10-30] MEDS: FUROSEMIDE 40 MG/4 ML VIAL IV PRN (21:41)
[2024-10-31] VITALS (10 sets, daily range): BP systolic 104–137; BP diastolic 72–88; TEMP 97.2–98.2; O2SAT 92–100
[2024-10-31 20:30] LABS: PLATELET COUNT (AUTO) 518 K/uL (150-450); RED BLOOD CELL COUNT(AUTO) 3.83 MIL/uL (4.0-5.2); RED CELL DISTRIBUTION WIDTH 16.5 % (11.5-15.0)
[2024-10-31 20:38] LABS: CALCIUM, SERUM 8.9 mg/dL (8.5-10.1); CREATININE 0.6 mg/dL (0.6-1.3); SODIUM SERUM 139 mmol/L (136-145); UREA NITROGEN, BLOOD 50 mg/dL (7-18)
[2024-10-31 20:42] LABS: WHITE BLOOD COUNT (AUTO) 30.1 K/uL (4.3-11.0)
[2024-10-31 20:44] LABS: ASPARTATE AMINOTRANSFERASE 9 U/L (15-37); TOTAL PROTEIN, SERUM 5.9 g/dL (6.4-8.2)
[2024-10-31 21:21] LABS: BAND % (MANUAL) 1 % (0.0-5.0); BASOPHILS % (MANUAL) 0 % (0.0-2.0); EOSINOPHILS % (MANUAL) 2 % (0-4); LYMPHOCYTES % (MANUAL) 2 % (16-48); METAMYELOCYTES % 1 % (0-0); MONOCYTES % (MANUAL) 4 % (0-11.0); NEUTROPHILS % (MANUAL) 90 (42-76); PLATELET ESTIMATE INCREASED
[2024-11-01] VITALS (8 sets, daily range): BP systolic 100–126; BP diastolic 73–83; TEMP 97.5–98.7; O2SAT 96–100
[2024-11-01 07:06] LABS: CALCIUM, SERUM 9.1 mg/dL (8.5-10.1); CREATININE 0.7 mg/dL (0.6-1.3); SODIUM SERUM 139.0 mmol/L (136-145); UREA NITROGEN, BLOOD 55.0 mg/dL (7-18)
[2024-11-01 07:11] LABS: ASPARTATE AMINOTRANSFERASE 9.0 U/L (15-37); TOTAL PROTEIN, SERUM 5.9 g/dL (6.4-8.2)
[2024-11-01 07:42] LABS: PLATELET COUNT (AUTO) 515 K/uL (150-450); RED BLOOD CELL COUNT(AUTO) 4.01 MIL/uL (4.0-5.2); RED CELL DISTRIBUTION WIDTH 16.1 % (11.5-15.0)
[2024-11-01 07:49] LABS: WHITE BLOOD COUNT (AUTO) 31.9 K/uL (4.3-11.0)
[2024-11-01] MEDS: POTASSIUM CHLORIDE 20 MEQ TAB.PRT.SR PO SCH (09:45)
[2024-11-01 12:10] LABS: LYMPHOCYTES % (MANUAL) 8 % (16-48); MONOCYTES % (MANUAL) 4 % (0-11.0); NEUTROPHILS % (MANUAL) 88 (42-76)
[2024-11-01 12:11] LABS: PLATELET ESTIMATE ADEQUATE
== END 2024-11-01 16:00 | disposition hospice, home (50) | DRG 640 ==
LOC: ER 11:55 → TELE1 16:01 → MEDSG1 10-21 09:58 → TELE-TD 10-26 18:15 → TELE1 10-27 11:54
PROVIDERS: ADMIT Nurse Practitioner Family; ATTEND Internal Medicine
PROC: 30233N1 Transfusion of Nonautologous Red Blood Cells into Peripheral Vein, Percutaneous Approach (ICD-10-PCS; principal; 2024-10-25)
PROC: 5A09357 Assistance with Respiratory Ventilation, Less than 24 Consecutive Hours, Continuous Positive Airway Pressure (ICD-10-PCS; 2024-10-26)
PROC: 5A09357 Assistance with Respiratory Ventilation, Less than 24 Consecutive Hours, Continuous Positive Airway Pressure (ICD-10-PCS; 2024-10-27)
DX: E86.0 Dehydration (principal); E43 Unspecified severe protein-calorie malnutrition; G93.41 Metabolic encephalopathy; J96.01 Acute respiratory failure with hypoxia; J69.0 Pneumonitis due to inhalation of food and vomit; D62 Acute posthemorrhagic anemia; I82.411 Acute embolism and thrombosis of right femoral vein; I82.621 Acute embolism and thrombosis of deep veins of right upper extremity; J90 Pleural effusion, not elsewhere classified; J98.11 Atelectasis; C79.9 Secondary malignant neoplasm of unspecified site; R62.7 Adult failure to thrive; I10 Essential (primary) hypertension; C55 Malignant neoplasm of uterus, part unspecified; D75.839 Thrombocytosis, unspecified; E11.9 Type 2 diabetes mellitus without complications; E78.5 Hyperlipidemia, unspecified; Z66 Do not resuscitate; Z20.822 Contact with and (suspected) exposure to COVID-19; R53.1 Weakness; D72.829 Elevated white blood cell count, unspecified; Z68.30 Body mass index [BMI] 30.0-30.9, adult; Z22.322 Carrier or suspected carrier of Methicillin resistant Staphylococcus aureus; F03.90 Unspecified dementia, unspecified severity, without behavioral disturbance, psychotic disturbance, mood disturbance, and anxiety; Z79.4 Long term (current) use of insulin; Z79.84 Long term (current) use of oral hypoglycemic drugs; L89.156 Pressure-induced deep tissue damage of sacral region; F31.9 Bipolar disorder, unspecified; Z51.5 Encounter for palliative care
CPT/HCPCS: 31720; 36415; 36600; 70450-TC; 71045-TC; 71260-TC; 74018; 80048-TC; 80053-TC; 80076-TC; 80202-TC; 81001; 82140-TC; 82803-TC; 82962-TC; 83605-TC; 83735-TC; 83880; 84100-TC; 84443-TC; 84484-TC; 85025-TC; 85027-TC; 85730-TC; 86803; 86850-TC; 87040-TC; 87070-TC; 87081-TC; 87086-TC; 87186-TC; 87205-TC; 87806; 92526; 92611-TC; 93970-TC; 94660; 94760-TC; 94799-TC; A4216; A4223; G0378; J0360; J0692; J0696; J1650; J1815; J1938; J2470; J2543; J3370; J3371; J3490; J7030; J7040; J7050; J7060; J7120; P9016; P9047; Q9967